=== PATIENT | male | born 1945 | race Caucasian/White ===

== ENCOUNTER 2023-09-02 15:39 | Inpatient (IN) | payer MEDICARE, OTHER ==
[~2023-09-02] VITALS: Ht 175.3 cm; Wt 66.3 kg
[~2023-09-02 15:39] MED LIST: GLIM2TAB PO; GLU500 PO; LISI10TA29 PO; SIMV-343 PO
[2023-09-02 15:40] VITALS: BP_SYST 108; PULSE 77; RESP 19; TEMP 97.9; O2SAT 98
[2023-09-02] MEDS ORDERED: IOHEXOL 350 mgI/mL, 150 ML INFUS..BTL IV ONE (15:51)
[2023-09-02] MEDS ORDERED: NACL 0.9% 1,000 ML IV ONE ×2 (17:00→18:00)
[2023-09-02 17:01] LABS: BASOPHILS % (AUTO) 0.3 % (0.0-2.0); EOSINOPHILS % (AUTO) 0.2 % (0.0-4.0); HEMATOCRIT 34.3 % (36-54); HEMOGLOBIN 11.9 g/dL (14.0-18.0); LYMPHOCYTES # (AUTO) 1.1 K/uL (1.0-5.5); MEAN CORPUSCULAR HEMOGLOBIN 31 pg (27-31); MEAN CORPUSCULAR HGB CONC 35 % (32-36); MEAN CORPUSCULAR VOLUME 89 fL (79.0-98.0); MONOCYTES # (AUTO) 0.8 K/uL (0.0-1.0); MONOCYTES % (AUTO) 12.7 % (1.7-9.3); NEUTROPHILS # (AUTO) 4.1 K/uL (1.8-7.7); NEUTROPHILS % (AUTO) 67.8 % (40.0-70.0); PLATELET COUNT (AUTO) 205 K/uL (130-430); RED BLOOD CELL COUNT(AUTO) 3.87 MIL/uL (4.2-6.2); RED CELL DISTRIBUTION WIDTH 14.3 % (9.0-15.0); WHITE BLOOD COUNT (AUTO) 6.1 K/uL (4.8-10.8)
[2023-09-02 17:12] LABS: INR 1.1 (0.80-1.20); PROTHROMBIN TIME 11.2 SECS (9.5-12.5)
[2023-09-02 17:16] LABS: ANION GAP 14 (5-15); CALCIUM 8.3 mg/dL (8.4-11.0); CARBON DIOXIDE 21 mmol/L (23-29); CHLORIDE 103 mmol/L (98-107); CREATININE 0.68 mg/dL (0.55-1.30); GLUCOSE 142 mg/dL (74-106); POTASSIUM 3.6 mmol/L (3.5-5.1); SODIUM SERUM 138 mmol/L (136-145); UREA NITROGEN, BLOOD 11 mg/dL (8-21)
[2023-09-02 17:25] LABS: ALCOHOL, BLOOD < 3 mg/dL (<10)
[2023-09-02 17:56] LABS: TRIGLYCERIDES 50 mg/dL (30-150)
[2023-09-02 17:57] LABS: HDL CHOLESTEROL 49 mg/dL (>45)
[2023-09-02 18:07] LABS: CHOLESTEROL 94 mg/dL (<200)
[2023-09-02 18:28] LABS: HEMOGLOBIN A1C 7.98 % (<5.7)
[2023-09-02] MEDS ORDERED: levETIRAcetam 1,000 MG in NS 90 ML IV ONE (19:45)
[2023-09-02 19:51] LABS: BILIRUBIN,URINE NEGATIVE (NEGATIVE); BLOOD, URINE NEGATIVE (NEGATIVE); CLARITY/URINE CLEAR (CLEAR); COLOR,URINE YELLOW (YELLOW); GLUCOSE,URINE TRACE (NEGATIVE); KETONES,URINE NEGATIVE (NEGATIVE); LEUKOCYTE ESTERASE ,URINE NEGATIVE (NEGATIVE); NITRITE, URINE NEGATIVE (NEGATIVE); PROTEIN URINE NEGATIVE (NEGATIVE)
[2023-09-02 19:57] LABS: BARBITURATE, URINE NEGATIVE (NEG <=200); BENZODIAZEPINE, URINE NEGATIVE (NEG <=150); CANNABINOID, URINE NEGATIVE (NEG <=50); COCAINE, URINE NEGATIVE (NEG <=150); METHAMPHETAMINES SCREEN,URINE NEGATIVE (NEG <=500); OPIATE, URINE NEGATIVE (NEG <=100); PHENCYCLIDINE SCREEN,URINE NEGATIVE (NEG <=25); UR TRICYCLIC ANTIDEPRESSANTS NEGATIVE (NEG <=300); URINE AMPHETAMINE NEGATIVE (NEG <=500); URINE METHADONE NEGATIVE (NEG <=200); URINE OXYCODONE SCREEN NEGATIVE (NEG <=100)
[2023-09-02 20:00] LABS: INFLUENZA TYPE A Negative (NEGATIVE); INFLUENZA TYPE B NEGATIVE (NEGATIVE)
[2023-09-02] MEDS ORDERED: METF-1069 PO (21:10)
[2023-09-02] MEDS ORDERED: CARB1TAB33 PO (21:10)
[2023-09-02] MEDS ORDERED: ATOR-1 PO (21:10)
[2023-09-02] MEDS ORDERED: CLOP75TA32 PO (21:10)
[2023-09-02] MEDS: D5/0.45 NS 1,000 ML IV SCH (21:40)
[2023-09-03] VITALS (8 sets, daily range): BP systolic 92–133; PULSE 64–79; RESP 16–22; TEMP 97.5–100.6; O2SAT 92–95
[2023-09-03] MEDS: D5/0.45 NS 1,000 ML IV SCH ×2 (05:51→17:00)
[2023-09-03] MEDS ORDERED: CLOPIDOGREL BISULFATE 75 MG TABLET PO ONE (11:00)
[2023-09-03] MEDS ORDERED: ASPIRIN 81 MG TAB.CHEW PO ONE (11:00)
[2023-09-03] MEDS ORDERED: ATORVASTATIN 20 MG TABLET PO ONE (11:00)
[2023-09-03] MEDS ORDERED: ACETAMINOPHEN 325 MG TABLET PO PRN ×2 (21:15)
[2023-09-04 01:36] VITALS: BP_SYST 91; PULSE 65; RESP 18; TEMP 98.4
[2023-09-04] MEDS: D5/0.45 NS 1,000 ML IV SCH ×2 (05:58→13:00)
[2023-09-04 08:00] VITALS: BP_SYST 106; PULSE 59; RESP 20; TEMP 98.7; O2SAT 97
[2023-09-04] MEDS: CLOPIDOGREL BISULFATE 75 MG TABLET PO SCH (09:07)
[2023-09-04] MEDS: ATORVASTATIN 20 MG TABLET PO SCH (09:07)
[2023-09-04] MEDS: ASPIRIN 81 MG TAB.CHEW PO SCH (09:08)
[2023-09-04 13:20] VITALS: BP_SYST 100; PULSE 62; RESP 18; TEMP 99; O2SAT 95
[2023-09-04] MEDS: AZITHROMYCIN 250 MG in NS 250 ML IV SCH (15:14)
[2023-09-04 16:43] VITALS: BP_SYST 102; PULSE 64; RESP 18; TEMP 98.2; O2SAT 95
[2023-09-04 19:00] VITALS: BP_SYST 109; PULSE 62; RESP 16; TEMP 96.9; O2SAT 98
[2023-09-04 20:00] VITALS: BP_SYST 109; PULSE 62; RESP 16; TEMP 96.9; O2SAT 94
[2023-09-05 02:17] VITALS: BP_SYST 101; BP_SYST 104; PULSE 69; PULSE 82; RESP 17; RESP 18; TEMP 97.6; O2SAT 94
[2023-09-05] MEDS: D5/0.45 NS 1,000 ML IV SCH ×3 (05:18→22:24)
[2023-09-05 08:00] VITALS: BP_SYST 133; PULSE 56; RESP 18; TEMP 98.9; O2SAT 95
[2023-09-05 09:57] LABS: BASOPHILS % (AUTO) 0.2 % (0.0-2.0); EOSINOPHILS % (AUTO) 0.3 % (0.0-4.0); HEMATOCRIT 33.9 % (36-54); HEMOGLOBIN 11.5 g/dL (14.0-18.0); LYMPHOCYTES # (AUTO) 1.2 K/uL (1.0-5.5); LYMPHOCYTES % (AUTO) 20.8 % (20.5-51.5); MEAN CORPUSCULAR HEMOGLOBIN 30 pg (27-31); MEAN CORPUSCULAR HGB CONC 34 % (32-36); MEAN CORPUSCULAR VOLUME 87 fL (79.0-98.0); MONOCYTES # (AUTO) 0.3 K/uL (0.0-1.0); MONOCYTES % (AUTO) 5.5 % (1.7-9.3); NEUTROPHILS # (AUTO) 4.2 K/uL (1.8-7.7); NEUTROPHILS % (AUTO) 73.2 % (40.0-70.0); PLATELET COUNT (AUTO) 161 K/uL (130-430); RED BLOOD CELL COUNT(AUTO) 3.88 MIL/uL (4.2-6.2); RED CELL DISTRIBUTION WIDTH 14.3 % (9.0-15.0); WHITE BLOOD COUNT (AUTO) 5.7 K/uL (4.8-10.8)
[2023-09-05] MEDS: CLOPIDOGREL BISULFATE 75 MG TABLET PO SCH (10:05)
[2023-09-05] MEDS: ASPIRIN 81 MG TAB.CHEW PO SCH (10:05)
[2023-09-05] MEDS: ATORVASTATIN 20 MG TABLET PO SCH (10:05)
[2023-09-05] MEDS: THIAMINE HCL 100 MG TABLET GT SCH (10:06)
[2023-09-05 10:07] LABS: ERYTHROCYTE SEDIMENTATION RATE 12 MM/HR (0-15)
[2023-09-05 10:11] LABS: ALANINE AMINOTRANSFERASE 25 U/L (12-78); ALBUMIN 2.7 g/dL (3.4-4.8); ANION GAP 11 (5-15); ASPARTATE AMINOTRANSFERASE 19 U/L (10-37); CALCIUM 8.5 mg/dL (8.4-11.0); CARBON DIOXIDE 22 mmol/L (23-29); CHLORIDE 100 mmol/L (98-107); CREATININE 0.67 mg/dL (0.55-1.30); GLUCOSE 294 mg/dL (74-106); POTASSIUM 3.3 mmol/L (3.5-5.1); SODIUM SERUM 133 mmol/L (136-145); TOTAL BILIRUBIN 0.5 mg/dL (0.0-1.0); TOTAL PROTEIN, SERUM 5.9 g/dL (6.4-8.3); UREA NITROGEN, BLOOD 7 mg/dL (8-21)
[2023-09-05 11:21] VITALS: BP_SYST 114; PULSE 86; RESP 16; TEMP 96.6; O2SAT 97
[2023-09-05 15:30] VITALS: BP_SYST 109; PULSE 60; RESP 16; TEMP 98.8; O2SAT 95
[2023-09-05] MEDS: AZITHROMYCIN 250 MG in NS 250 ML IV SCH (17:15)
[2023-09-05 20:30] VITALS: BP_SYST 107; PULSE 65; RESP 18; TEMP 98.3; O2SAT 94
[2023-09-05 22:00] VITALS: O2SAT 94
[2023-09-06] VITALS (8 sets, daily range): BP systolic 98–113; PULSE 60–80; RESP 16–18; TEMP 97.9–99; O2SAT 93–98
[2023-09-06] MEDS ORDERED: ALBUTEROL SULFATE 0.083% 2.5 MG/3 ML VIAL.NEB INH PRN (02:30)
[2023-09-06] MEDS ORDERED: IPRATROPIUM BROM 0.5 MG/2.5 ML VIAL.NEB (ATROVENT) INH PRN (02:30)
[2023-09-06] MEDS ORDERED: cefTRIAXone 1 GM IVPB PREMIX 50 ML IV ONE (03:45)
[2023-09-06] MEDS: cefTRIAXone 1 GM in D5W 50 ML IV SCH (04:05)
[2023-09-06] MEDS ORDERED: GLUCOSE (DEXTROSE) ORAL GEL -Adults PO PRN (07:45)
[2023-09-06] MEDS ORDERED: DEXTROSE 50%-WATER 50 ML DISP.SYRIN IVP PRN (07:45)
[2023-09-06] MEDS ORDERED: D5W 1,000 ML IV PRN (07:45)
[2023-09-06] MEDS: D5/0.45 NS 1,000 ML IV SCH ×2 (09:40→15:38)
[2023-09-06] MEDS: metFORMIN HCL 500 MG TABLET PO SCH ×2 (09:59→17:10)
[2023-09-06] MEDS: THIAMINE HCL 100 MG TABLET GT SCH (10:00)
[2023-09-06] MEDS: ATORVASTATIN 20 MG TABLET PO SCH (10:00)
[2023-09-06] MEDS: CLOPIDOGREL BISULFATE 75 MG TABLET PO SCH (10:00)
[2023-09-06] MEDS: ASPIRIN 81 MG TAB.CHEW PO SCH (10:00)
[2023-09-06 11:13] LABS: BASOPHILS % (AUTO) 0.3 % (0.0-2.0); EOSINOPHILS % (AUTO) 0.9 % (0.0-4.0); HEMATOCRIT 37.2 % (36-54); HEMOGLOBIN 12.7 g/dL (14.0-18.0); LYMPHOCYTES # (AUTO) 0.8 K/uL (1.0-5.5); LYMPHOCYTES % (AUTO) 22.2 % (20.5-51.5); MEAN CORPUSCULAR HEMOGLOBIN 30 pg (27-31); MEAN CORPUSCULAR HGB CONC 34 % (32-36); MEAN CORPUSCULAR VOLUME 88 fL (79.0-98.0); MONOCYTES # (AUTO) 0.3 K/uL (0.0-1.0); MONOCYTES % (AUTO) 9.1 % (1.7-9.3); NEUTROPHILS # (AUTO) 2.6 K/uL (1.8-7.7); NEUTROPHILS % (AUTO) 67.5 % (40.0-70.0); PLATELET COUNT (AUTO) 177 K/uL (130-430); RED BLOOD CELL COUNT(AUTO) 4.22 MIL/uL (4.2-6.2); RED CELL DISTRIBUTION WIDTH 14.1 % (9.0-15.0); WHITE BLOOD COUNT (AUTO) 3.8 K/uL (4.8-10.8)
[2023-09-06 11:34] LABS: ALANINE AMINOTRANSFERASE 37 U/L (12-78); ALBUMIN 2.8 g/dL (3.4-4.8); ANION GAP 10 (5-15); ASPARTATE AMINOTRANSFERASE 39 U/L (10-37); CALCIUM 8.6 mg/dL (8.4-11.0); CARBON DIOXIDE 24 mmol/L (23-29); CHLORIDE 102 mmol/L (98-107); CREATININE 0.68 mg/dL (0.55-1.30); GLUCOSE 355 mg/dL (74-106); LACTATE DEHYDROGENASE 149 U/L (85-227); POTASSIUM 3.2 mmol/L (3.5-5.1); SODIUM SERUM 136 mmol/L (136-145); TOTAL BILIRUBIN 0.4 mg/dL (0.0-1.0); TOTAL PROTEIN, SERUM 6.4 g/dL (6.4-8.3); UREA NITROGEN, BLOOD 5 mg/dL (8-21)
[2023-09-06] MEDS: INSULIN REGULAR, HUMAN 100 UNITS/ML, 3 ML VIAL (humuLIN R) SUBCUT PRN ×2 (11:47→22:19)
[2023-09-06] MEDS: AZITHROMYCIN 250 MG in NS 250 ML IV SCH (15:39)
[2023-09-07 00:15] VITALS: BP_SYST 99; PULSE 59; RESP 18; TEMP 99.2; O2SAT 95
[2023-09-07] MEDS: cefTRIAXone 1 GM in D5W 50 ML IV SCH (03:01)
[2023-09-07] MEDS: D5/0.45 NS 1,000 ML IV SCH (03:02)
[2023-09-07 08:00] VITALS: BP_SYST 102; PULSE 60; RESP 18; TEMP 98.9; O2SAT 96
== END 2023-09-07 08:40 | disposition short-term general hospital (02) | DRG 177 ==
LOC: SED 15:39 → STU 20:53 → SMU 09-05 17:11
PROVIDERS: ADMIT Preventive Medicine Preventive Medicine/Occupational Environmental Medicine; ATTEND Preventive Medicine Preventive Medicine/Occupational Environmental Medicine
PROC: 4A10X4Z Monitoring of Central Nervous Electrical Activity, External Approach (ICD-10-PCS; principal; 2023-09-02)
PROC: XW033E5 Introduction of Remdesivir Anti-infective into Peripheral Vein, Percutaneous Approach, New Technology Group 5 (ICD-10-PCS; 2023-09-07)
PROC: B3251ZZ Computerized Tomography (CT Scan) of Bilateral Common Carotid Arteries using Low Osmolar Contrast (ICD-10-PCS; 2023-09-07)
PROC: B32R1ZZ Computerized Tomography (CT Scan) of Intracranial Arteries using Low Osmolar Contrast (ICD-10-PCS; 2023-09-07)
PROC: B3281ZZ Computerized Tomography (CT Scan) of Bilateral Internal Carotid Arteries using Low Osmolar Contrast (ICD-10-PCS; 2023-09-07)
DX: U07.1 COVID-19 (principal); G93.41 Metabolic encephalopathy; J12.82 Pneumonia due to coronavirus disease 2019; R47.01 Aphasia; G45.9 Transient cerebral ischemic attack, unspecified; I10 Essential (primary) hypertension; E78.5 Hyperlipidemia, unspecified; F03.90 Unspecified dementia, unspecified severity, without behavioral disturbance, psychotic disturbance, mood disturbance, and anxiety; G20.C Parkinsonism, unspecified; E87.6 Hypokalemia; I95.9 Hypotension, unspecified; Z87.891 Personal history of nicotine dependence; Z86.73 Personal history of transient ischemic attack (TIA), and cerebral infarction without residual deficits; E11.69 Type 2 diabetes mellitus with other specified complication
CPT/HCPCS: 36415; 70450; 70496; 70498; 70551; 71045; 76376; 80048; 80053; 80061; 80307; 81001; 81003; 82962; 83037; 83615; 84484; 85025; 85610-TC; 85651-TC; 85730-TC; 86886; 86900; 86901; 87040; 93005; 93306; 94760; 95816; 96365; 97116-GP; 97530-GP; 99291; G0378; G0482; J0456; J0696; J1953; J7050; J7060; Q9967